=== PATIENT | female | born 1960 | race Caucasian/White ===

== ENCOUNTER 2019-12-31 07:03 | Outpatient (CLI) | payer OTHER, SELFPAY ==
--- NOTE | 2019-12-31 07:08 | MM_ITS ---
WS: [id number] BILATERAL DIGITAL SCREENING MAMMOGRAPHY WITH CAD CLINICAL INFORMATION: SCREENING HISTORY: Screening mammogram. No current complaints. COMPARISON: September 25, 2018 TECHNIQUE: Bilateral CC and MLO views. FINDINGS: The breasts are composed of heterogeneous fibroglandular density tissue, which can limit the detectio n of small underlying mass lesions. No suspicious mass, asymmetry, calcifications, or architectural d istortion. No evidence of malignancy. Stable dystrophic calcification left breast. Stable punctate ca lcifications. MM/[id number] IMPRESSION: BI-RADS: 2-Benign FOLLOW UP: 1 Year Follow-up Recommend return to annual screening mammography.
== END 2019-12-31 07:04 | disposition home or self-care (01) ==
LOC: RADSHAW 07:05
PROVIDERS: PCP Nurse Practitioner Family; Visit Provider Nurse Practitioner Family
DX: Z12.31 Encounter for screening mammogram for malignant neoplasm of breast (principal)
CPT/HCPCS: 77067

== ENCOUNTER 2021-02-09 06:58 | Outpatient (CLI) | payer OTHER, SELFPAY ==
--- NOTE | 2021-02-09 07:13 | MM_ITS ---
WS: [id number] BILATERAL DIGITAL SCREENING MAMMOGRAPHY WITH CAD CLINICAL INFORMATION: SCREENING HISTORY: Screening mammogram. No current complaints. COMPARISON: December 31, 2019 TECHNIQUE: Bilateral CC and MLO views. FINDINGS: The breasts are composed of heterogeneous fibroglandular density tissue, which can limit the detectio n of small underlying mass lesions. No suspicious mass, asymmetry, calcifications, or architectural d istortion. No evidence of malignancy. Stable punctate and dystrophic calcifications. MM/[id number] IMPRESSION: BI-RADS: 2-Benign FOLLOW UP: 1 Year Follow-up Recommend return to annual screening mammography.
== END 2021-02-09 06:59 | disposition home or self-care (01) ==
PROVIDERS: PCP Nurse Practitioner Family; Visit Provider Nurse Practitioner Family
DX: Z12.31 Encounter for screening mammogram for malignant neoplasm of breast (principal)
CPT/HCPCS: 77067

== ENCOUNTER 2022-02-15 06:50 | Outpatient (CLI) | payer OTHER, SELFPAY ==
--- NOTE | 2022-02-15 07:17 | MM_ITS ---
WS: [id number] SCREENING DIGITAL BREAST TOMOSYNTHESIS MAMMOGRAM WITH CAD HISTORY: SCREEN COMPARISON: 02/09/2021, 12/31/2019 Bilateral CC and MLO with tomosynthesis and synthetic mammography submitted. Computer aided detection analyzed. Breast composition: The breasts are heterogeneously dense, which may obscure small masses. Focal area of architectural distortion seen best on the RIGHT CC projection posterior. No associated mass. The distortion is not definitely visualized on the MLO projection. There is a benign calcification associ ated with a fibroadenoma in the anterior central LEFT breast. MM/[place] [id number] IMPRESSION: BI-RADS: 0-Incomplete: Need additional imaging evaluation FOLLOW UP: Need Additional Imaging RIGHT breast: Spot compression views (CC and MLO). True ML. Ultrasound to follo w if abnormality persists.
== END 2022-02-15 06:51 | disposition home or self-care (01) ==
LOC: RAD 06:52
PROVIDERS: PCP Nurse Practitioner Family; Visit Provider Nurse Practitioner Family
DX: R92.2 Inconclusive mammogram (principal)
CPT/HCPCS: 77063; 77067

== ENCOUNTER 2022-03-18 12:37 | Outpatient (CLI) | payer OTHER, SELFPAY ==
--- NOTE | 2022-03-18 12:59 | MM_ITS ---
WS: [id number] ADDITIONAL VIEWS RIGHT MAMMOGRAM WITH DIGITAL BREAST TOMOSYNTHESIS. RIGHT BREAST ULTRASOUND HISTORY: ABNORMAL MAMMO COMPARISON: 02/09/2021, 12/31/2019 and 09/25/2018 RIGHT MAMMOGRAM: Spot compression views and true ML with digital breast tomosynthesis and SM. Architectural distortion RIGHT breast near 11-12 o'clock. Central nodule measuring 9 mm. Asymmetry an d distortion is in the posterior breast. RIGHT BREAST ULTRASOUND 2-D and color Doppler imaging submitted. Hypoechoic mass with irregular borders and posterior shadowing at 12:00, 5 cm from the nipple. Mild i ncreased vascularity. Mass measures 1.5 x 0.9 x 1.6 cm. This corresponds to the mammographic abnormal ity. MM/[place] [id number] IMPRESSION: BI-RADS: 5-Highly Suggestive of Malignancy FOLLOW UP: Biopsy Recommended Ultrasound-guided biopsy recommended RIGHT breast mass at 12:00. Notified MYRA Wan at 03/18/2022 4:00 PM.
== END 2022-03-18 12:38 | disposition home or self-care (01) ==
LOC: RAD 12:39
PROVIDERS: PCP Nurse Practitioner Family; Visit Provider Nurse Practitioner Family
DX: R92.8 Other abnormal and inconclusive findings on diagnostic imaging of breast (principal); N63.11 Unspecified lump in the right breast, upper outer quadrant
CPT/HCPCS: 76642; 77061

== ENCOUNTER 2022-05-22 07:39 | Oncology outpatient (recurring) (ONCR) | payer OTHER, SELFPAY | END 2022-05-25 23:59 | disposition home or self-care (01) | LOC: ONCMED 07:39 | PROVIDERS: PCP Nurse Practitioner Family; Visit Provider Internal Medicine Hematology & Oncology | DX: C50.411 Malignant neoplasm of upper-outer quadrant of right female breast (principal) ==

== ENCOUNTER 2022-06-17 12:40 | Oncology outpatient (recurring) (ONCR) | payer OTHER, SELFPAY | END 2022-06-25 23:59 | disposition home or self-care (01) | PROVIDERS: PCP Nurse Practitioner Family; Visit Provider Internal Medicine Hematology & Oncology | DX: C50.811 Malignant neoplasm of overlapping sites of right female breast (principal); Z17.0 Estrogen receptor positive status [ER+] ==

== ENCOUNTER 2022-06-17 14:05 | Outpatient (CLI) | payer OTHER, SELFPAY ==
--- NOTE | 2022-06-17 14:00 | XR_ITS ---
WS: [id number] DEXA (DUAL ENERGY X-RAY ABSORPTIOMETRY) Bone mineral density was performed using a [employer] machine. HISTORY: Baseline COMPARISON: None available. Lumbar spine BMD (L1-L4): 1.083 g/cm2 T score: -0.8 Z score: -0.5 Total hip BMD: Left: 1.165 g/cm2. T score: 1.2 Z score: 1.5 Right: 1.131 g/cm2. T score: 1.0 Z score: 1.3 10 year probability of a major osteoporotic fracture is 10.2%. XR/XR DEXA axial skeleton* [id number] IMPRESSION: NORMAL BONE MINERAL DENSITY based upon the WHO classification for females.
== END 2022-06-17 14:06 | disposition home or self-care (01) ==
PROVIDERS: PCP Nurse Practitioner Family; Visit Provider Internal Medicine Hematology & Oncology
DX: Z13.820 Encounter for screening for osteoporosis (principal)
CPT/HCPCS: 77080

== ENCOUNTER 2022-09-09 14:00 | Oncology outpatient (recurring) (ONCR) | payer OTHER, SELFPAY | END 2022-09-22 23:59 | disposition home or self-care (01) | LOC: ONCMED 14:00 | PROVIDERS: PCP Nurse Practitioner Family; Visit Provider Internal Medicine Hematology & Oncology | DX: Z53.9 Procedure and treatment not carried out, unspecified reason (principal) ==

== ENCOUNTER 2023-01-29 22:06 | Emergency (ER) | payer OTHER, SELFPAY ==
[2023-01-29 22:09] VITALS: BP 194/80; PULSE 76; RESP 16; TEMP 36.4; O2SAT 96; BMI 32.8
--- NOTE | 2023-01-29 22:22 | ECG_ITS ---
[facility] Test Date: 2023-01-29 Pat Name: Joanna Avery Department: Room: Gender: Female Pot Puncher: : 1960 Requested By: Lamar Vega Order Number: [id number] Girish MD: Elroy Carlton M.D. Measurements Intervals [place] Rate: 68 P: 47 CO: 180 QRS: 9 QRSD: 86 T: 54 QT: 394 QTc: 422 Interpretive Statements SINUS RHYTHM WITH SINUS ARRHYTHMIA No previous ECG available for comparison Electronically Signed On 01-30-2023 21:18:48 CDT by Elroy Carlton M.D. [id number]
--- NOTE | 2023-01-29 22:34 | W.ED.ABDPA2 ---
HPI - Abdominal Pain General: Chief Complaint: Abdominal Pain Stated Complaint: severe abdominal pain, N/V Time Seen by Provider: 01/29/23 22:21 Source: patient Mode of arrival: ambulatory Limitations: no limitations History of Present Illness: Patient presents to the emergency department today for evaluation treatment of epigastric pain, nausea, vomiting, and decreased bowel movements. Patient reports that for a week or so now she has had symptoms off and on but, this afternoon, patient began developing consistent epigastric pain radiating up into the right chest and shoulder region. She has had a few episodes of nausea through the afternoon. She felt like she was having symptoms of constipation the last couple of days and states she has taken MiraLAX and stool softeners/laxatives and had some relief today. Patient believes she was running some low-grade fevers as well. No previous abdominal surgeries. She denies dysuria but does feel like her urine is concentrated. Review of Systems General: Reports: 10 or more systems reviewed and unremarkable except in HPI and below PFSH ED PFSH: Medical History Breast cancer, right Family History Mother Cancer Breast Sister Cancer Breast Sister Cancer Breast Social History Smoking and tobacco status: never smoked Alcohol intake: never Substance/Drug Use: never Adopted: No Caregiver/support person: Yes Lives independently: No Household members: spouse Housing: House Marital status: Number of children: 1 Current occupational status: employed Physical Exam Const: COMMON NORMALS: no acute distress, patient oriented x3 and alert HENMT: COMMON NORMALS: normocephalic, atraumatic, hearing grossly normal bilaterally and moist oral mucous membranes HEAD & SCALP: normocephalic and atraumatic Eye: COMMON NORMALS: Equal, round and reactive pupils present, EOMs intact bilaterally and conjunctivae normal CONJUNCTIVA: Yes conjunctivae normal PUPIL: Yes Equal, round and reactive pupils present Neck/C-Spine: COMMON NORMALS: full ROM and no JVD Lymph: LYMPHATIC: no lymphadenopathy noted Resp: COMMON NORMALS: normal respiratory effort, No retractions, No use of accessory muscles and clear to auscultation bilaterally AUSCULTATION: clear to auscultation bilaterally Cardio: COMMON NORMALS: no JVD, regular rate and regular rhythm RATE: regular rate RHYTHM: regular rhythm GI: OTHER: Abdomen is bloated and round. It is somewhat firm but compressible. Minimal discomfort to the right upper quadrant. Tenderness to palpation in the epigastric region. No other right lower quadrant, left lower quadrant or periumbilical pain on palpation. Diminished or absent bowel sounds throughout the abdomen. : COMMON NORMALS: Yes no CVA tenderness BLADDER/KIDNEY EXAM: Yes no CVA tenderness Back/Pelvis: COMMON NORMALS: no CVA tenderness, no thoracic nor lumbar tenderness and thoraco-lumbar ROM normal Extremity: COMMON NORMALS: normal to inspection, full ROM and capillary refill normal Neuro: COMMON NORMALS: patient oriented x3 SENSORIUM/ORIENTATION: Yes alert Psych: COMMON NORMALS: mental status grossly normal, Normal thought process present, cooperative, normal affect and activity/motor behavior normal THOUGHT PROCESS: Normal thought process present Skin: COMMON NORMALS: no rashes or lesions noted and no wounds GENERAL SKIN EXAM: no rashes or lesions noted Course Vital Signs: Vital signs: Vital Signs Temperature 97.6 F 01/29/23 22:09 Pulse Rate 77 01/30/23 01:21 Respiratory Rate 16 01/30/23 01:21 Blood Pressure 164/71 01/30/23 01:21 Pulse Oximetry 97 01/30/23 01:21 Oxygen Delivery Me thod Room Air 01/30/23 01:21 MDM - Abdominal Pain Medical Decision Making Patient presents to the emergency department today for complaints of off-and-on abdominal pain for 1 week worsening today with continuous epigastric pressure and pain since this afternoon with associated new onset vomiting. Patient believes she has been chilled but has not recorded any fevers. She admitted to some concerns for constipation but had a bowel movement today. Patient's lab work indicates a slightly elevated white blood cell count. She also has slightly elevated liver function test but a normal lipase. Elevated inflammatory markers were noted. Blood sugar 259. Given she is a 62-year-old female complaining of epigastric pain that is unrelenting we did pursue cardiac concerns. Initial EKG reveals no acute concerns and her baseline troponin was 13. Patient received fluids, Toradol, and morphine. Morphine provided as patient's blood pressure continued to climb while here in the emergency department. Patient had blood pressure 180s to 190s systolic and consistently had diastolic readings between 90s and 110s. After consulting with Dr. Bean, we did administer hydralazine and continued fluids. Given that the patient had elevated white blood cell count, we did proceed with CT exam. CT examination was concerning for acute cholecystitis but, also abnormal finding adjacent to the gallbladder at the liver. There is concerns for a cystic lesion, possible neoplastic in nature but cannot exclude an infectious process or an abscess given the location next to the gallbladder. Given this finding I did reach out to Dr. Macias however, he is requesting an MRI. MRI is not available until approximately 6 AM. We did reach out to the hospitalist about admitting to their services until patient can have her MRI performed but, they wanted sign off for consult by surgery. Surgery would not accept consult or admission on an inpatient basis without the MRI given that she may still need to be transferred. Patient was notified of all the findings including the need for an MRI. Explained that we will hold her here in the emergency department for several more hours until she is able to get her MRI. Care transferred to Dr Bean at 0300. Differential Diagnosis Likely constipation, gastroenteritis, pancreatitis (Gallstones, cholecystitis) and small bowel obstruction; Unlikely acute appendicitis Lab Data 01/29/23 22:35 01/29/23 22:35 Labs/Radiology: Radiology Impressions Abdomen/Pelvis CT 01/29/23 23:35 IMPRESSION: 1. Gallbladder wall thickening with surrounding edema, consider correlation with ultrasound. 2. Right hepatic lobe 5.5 cm complex cystic lesion, may reflect a neoplastic process, an infectious process/abscess may also be a consideration given possible continuity with the gallbladder imaged apparent suggestive of cholecystitis. Consider correlation with MRI and/or tissue sampling. 3. Right kidney cyst, negative for follow up. 4. Small to moderate umbilical hernia containing omentum without bowel. 5. Hepatic steatosis. 6. Moderate hiatal hernia. 7. Right kidney lower pole punctate nonobstructing calyceal stone. Laboratory Results WBC 14.02 10^3/uL (3.29-11.43) H 01/29/23 22:35 RBC 4.68 10^6/uL (3.85-5.65) 01/29/23 22:35 Hgb 13.70 g/dL (11.27-16.99) 01/29/23 22:35 Hct 41.4 % (36-47) 01/29/23 22:35 MCV 88.5 fl (85-98) 01/29/23 22:35 MCH 29.3 pg (27-33) 01/29/23 22:35 MCHC 33.1 g/dL (30-55) 01/29/23 22:35 RDW 12.8 % (12.1-15.1) 01/29/23 22:35 Plt Count 336 10^3/cmm (157-399) 01/29/23 22:35 MPV 10.3 fL (7.4-10.4) 01/29/23 22:35 Neut % (Auto) 82.9 % 01/29/23 22:35 Lymph % (Auto) 10.2 % 01/29/23 22:35 [place] % (Auto) 4.5 % 01/29/23 22:35 Eos % (Auto) 1.6 % 01/29/23 22:35 Baso % (Auto) 0.4 % 01/29/23 22:35 Neut # (Auto) 11.61 10^3/uL (1.8-7.7) H 01/29/23 22:35 Lymph # (Auto) 1.4 10^3/uL (0.8-4.8) 01/29/23 22:35 Stanton # (Auto) 0.6 10^3/uL (0.2-0.9) 01/29/23 22:35 Eos # (Auto) 0.2 10^3/uL (0.0-0.8) 01/29/23 22:35 Baso # (Auto) 0.1 10^3/uL (0.0-0.1) 01/29/23 22:35 Nucleated RBC % (auto) 0 % 01/29/23 22:35 Nucleated RBCs # 0.0 /100WBC 01/29/23 22:35 ESR 55 mm/hr (0-15) H 01/29/23 22:35 Sodium 135 mmol/L (136-145) L 01/29/23 22:35 Potassium 4.4 mmol/L (3.5-5.1) 01/29/23 22:35 Chloride 98 mmol/L (98-107) 01/29/23 22:35 Carbon Dioxide 20 mmol/L (22-29) L 01/29/23 22:35 Anion Gap 21.4 (5-19) H 01/29/23 22:35 BUN 13 mg/dL (8-23) 01/29/23 22:35 Creatinine 0.6 mg/dL (0.5-0.9) 01/29/23 22:35 GFR Calculation 101.3 mL/min (90-130) 01/29/23 22:35 Glucose 259 mg/dL (65-115) H 01/29/23 22:35 Calculated Osmolality 289 mOsm/kg (285-295) 01/29/23 22:35 Calcium 9.5 mg/dL (8.5-10.5) 01/29/23 22:35 Total Bilirubin 0.3 mg/dL (0.15-1.2) 01/29/23 22:35 AST 46 U/L (0-32) H 01/29/23 22:35 ALT 53 U/L (0-33) H 01/29/23 22:35 Alkaline Phosphatase 139 U/L (35-105) H 01/29/23 22:35 Troponin T Baseline 13 ng/L (0-10) H 01/29/23 22:35 Troponin T 120 Minute 15.45 ng/L (0-10) H 01/30/23 00:34 Delta Troponin T 2.45 ABS# (0-10) 01/30/23 00:34 C-Reactive Protein 43.2 mg/L (0.0-4.9) H 01/29/23 22:35 Total Protein 7.5 g/dL (6.6-8.7) 01/29/23 22:35 Albumin 4.6 g/dL (3.5-5.2) 01/29/23 22:35 Globulin 2.9 g/dL (1.3-4.6) 01/29/23 22:35 Lipase 38 U/L (13-60) 01/29/23 22:35 Urine Color Yellow (Yellow) 01/29/23 23:23 Urine Appearance Clear (CLEAR) 01/29/23 23:23 Urine pH 7 (5-7) 01/29/23 23:23 Ur Specific [place] 1.015 (1.005-1.030) 01/29/23 23:23 Urine Protein Neg (Negative) 01/29/23 23:23 Urine Glucose (UA) 4+ (Normal) H 01/29/23 23:23 Urine Ketones 1+ (Negative) H 01/29/23 23:23 Urine Blood Neg (Negative) 01/29/23 23:23 Urine Nitrate Negative (Negative) 01/29/23 23:23 Urine Bilirubin Neg (Negative) 01/29/23 23:23 Urine Urobilinogen Norm mg/dL (Negative) 01/29/23 23:23 Ur Leukocyte Esterase Negative (Negative) 01/29/23 23:23 Discharge Plan Discharge Condition: Stable Prescriptions: No Action glyburide 2.5 mg tablet 2.5 mg PO DAILY levothyroxine 25 mcg tablet 25 mcg PO DAILY Ozempic 1 mg/dose (2 mg/1.5 mL) pen injector SUBCUT .weekly rosuvastatin 10 mg tablet 10 mg PO DAILY metformin 500 mg tablet extended release 24hr 500 mg PO BID anastrozole [Arimidex] 1 mg tablet 1 mg PO DAILY 90 Days Qty: 90 5RF black cohosh 540 mg capsule 20 mg PO DAILY Referrals: Silva Leung, CONTENT ANALYST [Primary Care Provider] - Coding Level of Care Code 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
[2023-01-29] MEDS: metoclopramide 5 mg/mL SDV 2 mL 10 MG IVP (22:47)
[2023-01-29] MEDS: sodium chloride 0.9% 1,000 ML 999 ML IV (22:47)
[2023-01-29 22:55] LABS: Erythrocyte Sedimentation Rate 55 mm/hr (0-15)
[2023-01-29 23:08] LABS: Troponin(5th) Baseline 13 ng/L (0-10)
[2023-01-29 23:09] LABS: Alanine Aminotransferase 53 U/L (0-33); Albumin Level 4.6 g/dL (3.5-5.2); Alkaline Phosphatase 139 U/L (35-105); Anion Gap 21.4 (5-19); Aspartate Amino Transferase 46 U/L (0-32); Blood Urea Nitrogen 13 mg/dL (8-23); Calcium 9.5 mg/dL (8.5-10.5); Carbon Dioxide 20 mmol/L (22-29); Chloride 98 mmol/L (98-107); Globulin 2.9 g/dL (1.3-4.6); Glomerular Filtration Rate 101.3 mL/min (90-130); Glucose 259 mg/dL (65-115); Lipase 38 U/L (13-60); Osmolality Calculated 289 mOsm/kg (285-295); Potassium 4.4 mmol/L (3.5-5.1); Sodium 135 mmol/L (136-145); Total Bilirubin 0.3 mg/dL (0.15-1.2); Total Protein 7.5 g/dL (6.6-8.7)
[2023-01-29 23:23] LABS: Basophils # 0.1 10^3/uL (0.0-0.1); Basophils % 0.4 %; Eosinophils # 0.2 10^3/uL (0.0-0.8); Eosinophils % 1.6 %; Hematocrit 41.4 % (36-47); Lymphocytes # 1.4 10^3/uL (0.8-4.8); Lymphocytes % 10.2 %; Mean Corpuscular HGB Conc 33.1 g/dL (30-55); Mean Corpuscular Hemoglobin 29.3 pg (27-33); Mean Corpuscular Volume 88.5 fl (85-98); Mean Platelet Volume 10.3 fL (7.4-10.4); Monocytes # 0.6 10^3/uL (0.2-0.9); Monocytes % 4.5 %; Neutrophils # 11.61 10^3/uL (1.8-7.7); Neutrophils % 82.9 %; Nucleated Red Blood Cells % 0 %; Platelet Count 336 10^3/cmm (157-399); Red Blood Count 4.68 10^6/uL (3.85-5.65); Red Cell Distribution Width 12.8 % (12.1-15.1); White Blood Count 14.02 10^3/uL (3.29-11.43)
[2023-01-29 23:25] LABS: Slide Review Slide Review Perform
--- NOTE | 2023-01-29 23:35 | CTR_ITS ---
PROCEDURE INFORMATION: Exam: CT Abdomen And Pelvis With Contrast Exam date and time: 01/29/2023 11:47 PM Age: 62 years old Clinical indication: Abdominal pain; Localized; Upper; Additional info: Epigastric pain, minimal elev lfts, wbc 14 TECHNIQUE: Imaging protocol: Computed tomography of the abdomen and pelvis with contrast. Radiation optimization: All CT scans at this facility use at least one of these dose optimization techniques: automated exposure control; mA and/or kV adjustment per patient size (includes targeted exams where dose is matched to clinical indication); or iterative reconstruction. Contrast material: OMNI 350; Contrast volume: 100 ml; Contrast route: INTRAVENOUS (IV); REPORTING DATA: Count of CT and Cardiac NM exams in prior 12 months: This patient has received 0 known CTs and 0 known cardiac nuclear medicine studies in the 12 months prior to the current study. COMPARISON: CR XR chest 2V* [id number] 04/24/2022 7:48 AM RADIATION DOSE METRICS: Total DLP (mGy-cm): 885.19 FINDINGS: Diaphragm: Moderate hiatal hernia. Liver: Right hepatic lobe 5.5 cm complex cystic lesion, may reflect a neoplastic process, an infectious process/abscess may also be a consideration. Consider correlation with MRI and/or tissue sampling. Hepatic steatosis. Gallbladder and bile ducts: Right hepatic lobe 5.5 cm complex cystic lesion, may reflect a neoplastic process, an infectious process/abscess may also be a consideration given possible continuity with the gallbladder imaged apparent suggestive of cholecystitis. Consider correlation with MRI and/or tissue sampling. Pancreas: Normal. No ductal dilation. Spleen: Normal. No splenomegaly. Adrenal glands: Normal. No mass. Kidneys and ureters: Right kidney cyst, negative for follow up. Right kidney lower pole punctate nonobstructing calyceal stone. Stomach and bowel: Unremarkable. No obstruction. No mucosal thickening. Appendix: No evidence of appendicitis. Intraperitoneal space: Unremarkable. No free air. No significant fluid collection. Vasculature: Unremarkable. No abdominal aortic aneurysm. Lymph nodes: Unremarkable. No enlarged lymph nodes. Urinary bladder: Unremarkable as visualized. Reproductive: Unremarkable as visualized. Bones/joints: Unremarkable. No acute fracture. Soft tissues: Small to moderate umbilical hernia containing omentum without bowel. CT/CT abdomen pelvis w con* [id number] IMPRESSION: 1. Gallbladder wall thickening with surrounding edema, consider correlation with ultrasound. 2. Right hepatic lobe 5.5 cm complex cystic lesion, may reflect a neoplastic process, an infectious process/abscess may also be a consideration given possible continuity with the gallbladder imaged apparent suggestive of cholecystitis. Consider correlation with MRI and/or tissue sampling. 3. Right kidney cyst, negative for follow up. 4. Small to moderate umbilical hernia containing omentum without bowel. 5. Hepatic steatosis. 6. Moderate hiatal hernia. 7. Right kidney lower pole punctate nonobstructing calyceal stone.
[2023-01-29 23:41] LABS: C Reactive Protein 43.2 mg/L (0.0-4.9)
[2023-01-29 23:49] LABS: Add Urine Microscopic? NO; Charge for UA Resulting for Rev
[2023-01-29] MEDS: iohexol 350 mg/mL 500 mL Btl (per mL) IV (23:55)
[2023-01-29 23:57] VITALS: RESP 18; O2SAT 97
[2023-01-29] MEDS: ketorolac 30 mg/mL INJ IVP (23:57)
[2023-01-29] MEDS: morphine 4 mg/mL SDV 1 mL IVP (23:57)
[2023-01-30] VITALS (19 sets, daily range): BP systolic 151–201; BP diastolic 60–119; PULSE 62–81; RESP 14–18; O2SAT 93–99
[2023-01-30 00:11] LABS: Bilirubin Urine Neg (Negative); Blood Urine Neg (Negative); Glucose Urine UA 4+ (Normal); Ketones Urine 1+ (Negative); Leukocyte Esterase Urine Negative (Negative); Nitrate Urine Negative (Negative); Protein Urine Neg (Negative); Specific Gravity, Urine 1.015 (1.005-1.030); Urine Appearance Clear (CLEAR); Urine Color Yellow (Yellow); Urobilinogen Urine Norm (Negative); pH Urine 7 (5-7)
[2023-01-30 01:05] LABS: Troponin 5 2HR 15.45 ng/L (0-10)
[2023-01-30] MEDS: hyDRALAzine 20 mg/mL INJ 1 mL 10 MG IVP (01:26)
[2023-01-30 01:30] LABS: Troponin 5 2HR Delta 2.45 ABS# (0-10)
[2023-01-30] MEDS: sodium chloride 0.9% 1,000 ML 999 ML IV (01:31)
[2023-01-30] MEDS: metoclopramide 5 mg/mL SDV 2 mL 10 MG IVP ×2 (04:00→12:20)
[2023-01-30] MEDS: morphine 4 mg/mL SDV 1 mL IVP ×3 (04:00→20:46)
[2023-01-30 04:59] LABS: Troponin 5 6HR 16.67 ng/L (0-10)
[2023-01-30 05:00] LABS: Troponin 5 6HR Delta 3.67 ng/L (0-12)
[2023-01-30] MEDS: piperacillin-tazobactam 3.375 GM in sodium chloride 0.9% (plus) 50 ML IV ×3 (06:38→20:41)
--- NOTE | 2023-01-30 06:41 | PC.NURSE ---
pt resting in no acute distress at this time, spouse at bedside. pt & spouse updated about progress of care and transfer to another facility. cultures drawn and abx started.
--- NOTE | 2023-01-30 22:43 | PC.NURSE ---
ASSUMED CARE OF PT AT 2139.
[2023-01-31] VITALS: BP 182/83; PULSE 70; O2SAT 96
[2023-01-31 07:28] LABS: Bacillus cereus group Not Detected (NOT DETECT); Bacillus subtillis group Not Detected (NOT DETECT); Corynebacterium Not Detected (NOT DETECT); Cutibacterium acnes (P.acnes) Not Detected (NOT DETECT); Enterococcus Not Detected (NOT DETECT); Enterococcus faecalis Not Detected (NOT DETECT); Enterococcus faecium Not Detected (NOT DETECT); Lactobacillus species Not Detected (NOT DETECT); Listeria Not Detected (NOT DETECT); Listeria monocytogenes Not Detected (NOT DETECT); Micrococcus Not Detected (NOT DETECT); Pan Candida Not Detected (NOT DETECT); Pan Gram-Negative Not Detected (NOT DETECT); Staphylococcus epidermidis Detected (NOT DETECT); Staphylococcus lugdunensis Not Detected (NOT DETECT); Staphylococcus species Detected (NOT DETECT); Streptococcus agalactiae Not Detected (NOT DETECT); Streptococcus anginosus group Not Detected (NOT DETECT); Streptococcus pneumoniae Not Detected (NOT DETECT); Streptococcus pyogenes Not Detected (NOT DETECT); Streptococcus species Not Detected (NOT DETECT); mecA Not Detected (NOT DETECT); mecC Not Detected (NOT DETECT)
== END 2023-01-31 01:46 | disposition short-term general hospital (02) ==
PROVIDERS: Physician Assistant; Emergency Provider Family Medicine; PCP Nurse Practitioner Family
DX: R10.13 Epigastric pain (principal); Z79.84 Long term (current) use of oral hypoglycemic drugs; K44.9 Diaphragmatic hernia without obstruction or gangrene; Z85.3 Personal history of malignant neoplasm of breast
CPT/HCPCS: 36415; 74177; 80053; 81003; 83690; 84484; 85025; 85651; 86140; 87040; 87077; 87150; 87186; 87205; 93005; 96366; 96367; 96375; 96376; 99285; J0360; J1885; J2270; J2543; J2765; J7030; Q9967